=== PATIENT | male | born 1945 | race Caucasian/White ===

== ENCOUNTER 2018-01-22 10:19 | Emergency (ER) | payer MEDICARE, OTHER ==
[2018-01-22 10:26] VITALS: BMI 24.3
[2018-01-22] MEDS ORDERED: DEMEROL INJ IM ONE (10:54)
[2018-01-22] MEDS ORDERED: DUONEB 0.5 MG/3 MG NEB ONE (11:01)
[2018-01-22] MEDS ORDERED: DUONEB 0.5 MG/3 MG ONE (11:04)
--- NOTE | 2018-01-22 11:08 | DR.GENAD ---
HPI - PCP Primary Care Physician: zoe ruth - Complaint/Symptoms Chief Complaint:: pt. stated he has chronic lower back pain since august of last year. The last 2 day it has been worse. Patient states that in August he went to the chiropractor for back pain and he has been hurting in his chest every since. He admits to a history of COPD uses nebulizations as needed. Pulse ox 98%. Patient reports that four years years he was suppose to get a lung biopsy but refused. - Source History Provided: Patient - Mode of Arrival Mode of Arrival: Ambulatory - Timing Onset of Chief Complaint: 08/31/17 PMH - PMH Past Medical History: Yes Past Medical History: COPD, Dyslipidemia, Hypertension Past Surgical History: Yes Surgical History: Angioplasty/Stents, Appendectomy, Ortho Surgery - Family History History of Family Medical Conditions: Yes Family Medical History: [place], Hypertension - Social History Does patient currently use any type of tobacco product: Yes Have you used tobacco products in the last 12 months: Yes Type of Tobacco Use: Cigarettes How many years tobacco product used: 50 Does any household member use tobacco: No Alcohol Use: None Do you use any recreational Drugs:: No Lives With: Family Lives Where: Home - infectious screening In the last 2 months have you had wt loss of >10#?: NO Have you had fever, night sweats or hemotysis?: No Have you traveled outside the country in the last 6 months?: No Isolation: Standard ROS - Review of Systems Constitutional: No Symptoms Reported Eyes: No Symptoms Reported ENTM: No Symptoms Reported Respiratoy: See HPI, Short of Breath Cardiovascular: No Symptoms Reported Gastrointestinal/Abdominal: No Symptoms Reported Genitourinary: No Symptoms Reported Neurological: No Symptoms Reported Musculoskeletal: Chest wall (pain) Integumentary: No Symptoms Reported Hematologic/Lymphatic: No Symptoms Reported Endocrine: No Symptoms Reported Psychiatric: No Symptoms Reported All Other Systems: Reviewed and Negative PE - Vital Signs Vitals: Temperature 98.7 F Pulse Rate 71 Respiratory Rate 18 Blood Pressure 177/104 O2 Sat by Pulse Oximetry 99 - General Limitations: Physical Limitation General Appearance: Alert, In Distress - Head Head Exam: Normal Inspection, Atraumatic - Eyes Eye exam: Normal Appearance, PERRL - ENT ENT Exam: Normal Exam External Ear Exam: Normal External Inspection TM/Canal Exam: Bilateral Normal Nose Exam: Normal Nose Exam Mouth Exam: Normal Inspection Throat Exam: Normal Inspection - Neck Neck Exam: Normal Inspection, Full ROM - Chest Chest Inspection: Normal Inspection - Respiratory Respiratory Exam: Normal Lung Sounds Bilat Respiratory Exam: Bilateral Clear to Auscultation - Cardiovascular Cardiovascular Exam: Regular Rate, Normal Rhythm - Abdominal Exam Abdominal Exam: Normal Inspection Abdominal Tenderness: negative: RUQ, RLQ, LUQ, LLQ, Epigastrium, Suprapubic, Diffuse, Mild, Moderate, Severe, Other - Extremities Extremities Exam: Normal Inspection - Back Back Exam: Normal Inspection, Full ROM. negative: Tenderness - Neurologic Neurological Exam: Alert, Oriented X3, CN II-XII Intact - Psychiatric Psychiatric Exam: Normal Affect - Skin Skin Exam: Warm, Dry Course - Reevaluation 1st: Improved - Education/Counseling Educated On: Treatment, Diagnosis, Prognosis (Discussed at length the need for follow studies to exclude malignant disease), Needs for Follow Up ROR - Labs Reviewed Laboratory Results Reviewed?: Yes (D Dimer [id number]) Result Diagrams: 01/22/18 11:15 01/22/18 11:15 Laboratory: 01/22/18 12:09 Sputum - Expectorated Sputum Sputum Culture - Final 01/22/18 12:09 Sputum - Expectorated Sputum - Final WBC 9.8 X10^3/uL (3.6-10.0) 01/22/18 11:15 RBC 4.73 X10^6/uL (4.7-6.0) 01/22/18 11:15 Hgb 15.4 g/dL (13.5-18.0) 01/22/18 11:15 Hct 44.6 % (42.0-54.0) 01/22/18 11:15 MCV 94.3 fL (80.0-100.0) 01/22/18 11:15 MCH 32.5 pg (27.0-34.0) 01/22/18 11:15 MCHC 34.4 g/dL (33.0-35.0) 01/22/18 11:15 RDW 13.1 % (11.6-16.5) 01/22/18 11:15 Plt Count 198 X10^3/uL (150.0-450.0) 01/22/18 11:15 MPV 9.4 fL (7.4-11.0) 01/22/18 11:15 Neut % 72.2 % (42.0-75.0) 01/22/18 11:15 Lymph % 16.5 % (21.0-51.0) L 01/22/18 11:15 [place]ette % 9.6 % (0.0-13.0) 01/22/18 11:15 Eos % 0.9 % (0.9-2.9) 01/22/18 11:15 Baso % 0.8 % (0.2-1.0) 01/22/18 11:15 Neut # 7.1 x10^3/uL (2.2-4.8) H 01/22/18 11:15 Lymph # 1.6 X10^3/uL (1.3-2.9) 01/22/18 11:15 [place] # 0.9 x10^3/uL (0.3-0.8) H 01/22/18 11:15 Eos # 0.1 x10^3/uL (0.0-0.2) 01/22/18 11:15 Baso # 0.1 X10^3/uL (0.0-0.1) 01/22/18 11:15 Absolute Nucleated RBC 0.0 /100WBC 01/22/18 11:15 D-Dimer 1270 ng/mL (0-400) H* 01/22/18 11:15 Sodium 139 mmol/L (136-145) 01/22/18 11:15 Corrected Sodium TNP 01/22/18 11:15 Potassium 4.7 mmol/L (3.5-5.1) 01/22/18 11:15 Chloride 103 mmol/L (98-107) 01/22/18 11:15 Carbon Dioxide 30.2 mmol/L (21-32) 01/22/18 11:15 BUN 12 mg/dL (7-18) 01/22/18 11:15 Creatinine 0.90 mg/dL (0.70-1.30) 01/22/18 11:15 Est GFR (MDRD) Af Amer > 60 (>60) 01/22/18 11:15 Est GFR (MDRD) Non-Af > 60 (>60) 01/22/18 11:15 Glucose 97 mg/dL (65-99) 01/22/18 11:15 Calcium 10.1 mg/dL (8.5-10.1) 01/22/18 11:15 Corrected Calcium TNP 01/22/18 11:15 Total Bilirubin 0.50 mg/dL (0.2-1.0) 01/22/18 11:15 AST 15 Units/L (15-37) 01/22/18 11:15 ALT 19 Units/L (12-78) 01/22/18 11:15 Alkaline Phosphatase 111 Units/L (46-116) 01/22/18 11:15 Total Protein 7.6 g/dL (6.4-8.2) 01/22/18 11:15 Albumin 4.0 g/dL (3.4-5.0) 01/22/18 11:15 Globulin 3.6 g/dL (2.5-4.5) 01/22/18 11:15 Albumin/Globulin Ratio 1.1 Ratio (1.1-2.1) 01/22/18 11:15 Specimen Type Clean catch urine 01/22/18 11:11 Urine Color Yellow (YELLOW) 01/22/18 11:11 Urine Appearance Clear (CLEAR) 01/22/18 11:11 Urine pH 8.0 (5.0 - 8.0) 01/22/18 11:11 Ur Specific [place] 1.015 (1.000-1.030) 01/22/18 11:11 Urine Protein Negative (NEGATIVE) 01/22/18 11:11 Urine Glucose (UA) Negative (NEGATIVE) 01/22/18 11:11 Urine Ketones Negative (NEGATIVE) 01/22/18 11:11 Urine Occult Blood 1+ (NEGATIVE) 01/22/18 11:11 Urine Nitrite Negative (NEGATIVE) 01/22/18 11:11 Urine Bilirubin Negative (NEGATIVE) 01/22/18 11:11 Urine Urobilinogen Normal (NORMAL) 01/22/18 11:11 Ur Leukocyte Esterase Negative (NEGATIVE) 01/22/18 11:11 Urine RBC Rare /HPF (NONE SEEN) 01/22/18 11:11 Urine WBC Rare /HPF (NONE SEEN) 01/22/18 11:11 Ur Squamous Epith Cells Rare /HPF (NEGATIVE) 01/22/18 11:11 Amorphous Sediment 1+ /HPF (NEGATIVE) 01/22/18 11:11 Urine Bacteria Negative /HPF (NEGATIVE) 01/22/18 11:11 Urine Mucus Moderate /HPF (NEGATIVE) 01/22/18 11:11 Ur Culture Indicated? No/not indicated 01/22/18 11:11 - XRAY XRAY Interpreted by: Radiologist (CT chest: no evidence for acute pulmonary thrombolic disease. Bilateral upper lobe pulmonary nodules as described requiring evaluation with PET-CT in order to exclude primary lung neoplasm. Multiple other smaller noncalcified nodules which could represent granulomas or metastases. 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 Infrarenal abdominal aortic aneurysm extending over a diswtance of 5.5 cm with maximum AP diameter 3.8cm. Thoracic spinal osteopenia is present with multiple compressin fractures the most prominent is a vertebral plana compression fracture T6.) - Diagnosis Discharge Problem: Bilateral upper lobe pulmonary nodules Emphysema lung Qualifiers: Emphysema type: centrilobular Qualified Code(s): J43.2 - Centrilobular emphysema Traumatic compression fracture of T6 thoracic vertebra Qualifiers: Encounter type: sequela Qualified Code(s): S22.050S - Wedge compression fracture of T5-T6 vertebra, sequela - Discharge Plan Condition: Stable - Follow ups/Referrals Follow ups/Referrals: ZOE RUTH [Primary Care Provider] - 3 days - Instructions
--- NOTE | 2018-01-22 11:19 | RAD ---
HISTORY: 72-year-old male with dyspnea. Study: Frontal view of the chest. Comparison: None. Findings: ACDF is present. The trachea is midline. The cardiac silhouette is unremarkable. Prominent perihilar lung markings an d interstitium. Spiculated lesion measuring 2.3 cm left upper lobe with tenting and streaky airspace opacities oriented to the left hilum. There is elevation of left hemidiaphragm with patchy airspace opacities in the left lung base. No pneumothorax or large effusion Soft tissues are unremarkable. Os seous structures are unremarkable. IMPRESSION: 1. Findings concerning for malignant process of the left lung as described above with questionable p neumonia in the left lung base. CT thorax with contrast is recommended for complete evaluation. Reported By:
[2018-01-22] MEDS ORDERED: NS 1000 ML 1,000 ML ONE (11:20)
[2018-01-22 11:26] LABS: BASOPHILS # (AUTO) 0.1 X10^3/uL (0.0-0.1); BASOPHILS % (AUTO) 0.8 % (0.2-1.0); EOSINOPHILS # (AUTO) 0.1 x10^3/uL (0.0-0.2); EOSINOPHILS % (AUTO) 0.9 % (0.9-2.9); HEMATOCRIT 44.6 % (42.0-54.0); HEMOGLOBIN 15.4 g/dL (13.5-18.0); LYMPHOCYTES # (AUTO) 1.6 X10^3/uL (1.3-2.9); LYMPHOCYTES % (AUTO) 16.5 % (21.0-51.0); MEAN CORPUSCULAR HEMOGLOBIN 32.5 pg (27.0-34.0); MEAN CORPUSCULAR HGB CONC 34.4 g/dL (33.0-35.0); MEAN CORPUSCULAR VOLUME 94.3 fL (80.0-100.0); MEAN PLATELET VOLUME 9.4 fL (7.4-11.0); MONOCYTES # (AUTO) 0.9 x10^3/uL (0.3-0.8); MONOCYTES % (AUTO) 9.6 % (0.0-13.0); NEUTROPHILS # (AUTO) 7.1 x10^3/uL (2.2-4.8); NEUTROPHILS % (AUTO) 72.2 % (42.0-75.0); PLATELET COUNT 198 X10^3/uL (150.0-450.0); RED BLOOD COUNT 4.73 X10^6/uL (4.7-6.0); RED CELL DISTRIBUTION WIDTH 13.1 % (11.6-16.5); WHITE BLOOD COUNT 9.8 X10^3/uL (3.6-10.0)
[2018-01-22 11:37] LABS: ALANINE AMINOTRANSFERASE 19 Units/L (12-78); ALKALINE PHOSPHATASE 111 Units/L (46-116); ASPARTATE AMINO TRANSFERASE 15 Units/L (15-37); BLOOD UREA NITROGEN 12 mg/dL (7-18); CALCIUM 10.1 mg/dL (8.5-10.1); CARBON DIOXIDE 30.2 mmol/L (21-32); CHLORIDE 103 mmol/L (98-107); SODIUM 139 mmol/L (136-145); TOTAL PROTEIN 7.6 g/dL (6.4-8.2); eGFR BLACK RACES > 60 (>60); eGFR NON BLACK RACES > 60 (>60)
[2018-01-22 11:40] LABS: BILIRUBIN,URINE NEGATIVE (NEGATIVE); BLOOD/HEMOGLOBIN,URINE 1+ (NEGATIVE); GLUCOSE, URINE NEGATIVE (NEGATIVE); KETONES,URINE NEGATIVE (NEGATIVE); LEUKOCYTE ESTERASE ,URINE NEGATIVE (NEGATIVE); NITRITES,URINE NEGATIVE (NEGATIVE); PROTEIN,URINE NEGATIVE (NEGATIVE); UROBILINOGEN,URINE NORMAL (NORMAL)
[2018-01-22 11:50] LABS: APPEARANCE,URINE CLEAR (CLEAR); COLOR,URINE YELLOW (YELLOW)
[2018-01-22 11:51] LABS: BACTERIA,URINE NEGATIVE /HPF (NEGATIVE); RBC,URINE RARE /HPF (NONE SEEN); SQUAMOUS EPITHELIAL CELL,UR RARE /HPF (NEGATIVE)
[2018-01-22 11:52] LABS: AMORPHOUS SEDIMENT,UR 1+ /HPF (NEGATIVE); MUCUS,URINE MODERATE /HPF (NEGATIVE)
[2018-01-22] MEDS ORDERED: NS 1000 ML 1,000 ML IV SCH (12:00)
--- NOTE | 2018-01-22 12:39 | CT ---
HISTORY: Shortness of breath, elevated D-dimer, abnormal chest x-ray Study: CT chest with contrast Comparison: Plain chest x-ray same date Technique: Axial post-contrast images with coronal and sagittal reformats. Dose reduction procedures were used with mA/kv adjusted for body size. Findings: Examination of the mediastinum demonstrated no evidence for mediastinal masses, enlarged lymphadenopa thy, or enlarged hilar adenopathy. Coronary artery calcifications are present. The thoracic aorta is normal. There is adequate visualization of the pulmonary arterial circulation to allow for exclusion of acute pulmonary thromboembolic disease. No chest wall or axillary abnormality is identified. Those portions of the upper abdominal organs visualized were within normal limits with the exception of a fusiform infrarenal calcified abdominal aortic aneurysm extending over a distance of approximately 5. 5 cm and demonstrating a maximum AP diameter of 3.8 cm and a maximum transverse diameter 3.5 cm. Ther e is some mural thrombus present. This may extend into the common iliac artery is however there are n ot adequately visualized and CT abdomen pelvis with contrast is recommended for further evaluation wh en the patient is able to have additional contrast. Thoracic spinal osteopenia is present with multip le compression fractures the most prominent is a vertebra plana compression fracture T6. These fractu res are of indeterminate age. Examination of the lung casarez demonstrate changes of centrilobular emp hysema. There is fairly extensive fibrocalcific pleural parenchymal scarring in the upper lobes bilat erally with hilar retraction and some volume loss. There is a 1.16 cm spiculated left upper lobe pulm onary nodule best visualized on series 5 image 15 and series 7, image 37. Primary lung neoplasm must be excluded. PET-CT is recommended for further evaluation. There is also calcified granulomas more posteriorly in the left upper lobe. Best visualized on series 5, image 17 is a noncalcified 6 mm righ t upper lobe pulmonary nodule. Best visualized on series 5, image 20 is an oblong 2.7 by 1.3 cm by 2. 3 cm mass which can be evaluated also with PET-CT. Best visualized on series 5, image 30 is a 6.5 mm at or right lower lobe pulmonary nodule IMPRESSION: No evidence for acute pulmonary thromboembolic disease Bilateral upper lobe pulmonary nodules as described requiring evaluation with PET-CT in order to excl ude primary lung neoplasm Multiple other smaller noncalcified nodules which could represent granulomas or metastases Centrilobular emphysema Extensive pleural parenchymal scarring in the upper lobes bilaterally likely due to old granulomatous disease Infrarenal abdominal aortic aneurysm extending over a distance of 5.5 cm with maximum AP diameter 3.8 cm Reported By:
[2018-01-22 13:33] VITALS: BP 150/90
== END 2018-01-22 13:34 | disposition home or self-care (01) ==
LOC: ER 10:28
DX: J43.2 Centrilobular emphysema (principal); S22.050S Wedge compression fracture of T5-T6 vertebra, sequela; R91.1 Solitary pulmonary nodule; Y33.XXXA Other specified events, undetermined intent, initial encounter; Y92.9 Unspecified place or not applicable
CPT/HCPCS: 36415; 71045; 71260; 80053; 81001; 85025; 85378; 87205; 94640; 96365; 96367; 99283; 99284; A4222; J7620